=== PATIENT | male | born 1980 | race Caucasian/White ===

== ENCOUNTER 2017-05-02 20:05 | Emergency (ER) | payer MEDICAID ==
[~2017-05-02] VITALS: Ht 180.3 cm; Wt 75.5 kg
[2017-05-02] MEDS ORDERED: ALBU8HFA IH (20:36)
[2017-05-02] MEDS ORDERED: PredniSONE 20 MG TABLET PO ONE (21:15)
[2017-05-02] MEDS ORDERED: PROPARACAINE/FLUORESCEIN SOD 0.5-0.25% 0.5 ML OPHTHALMIC SOLUTION OD ONE (21:15)
[2017-05-02] MEDS ORDERED: DiphenhydrAMINE HCL 25 MG CAPSULE PO ONE (21:15)
[2017-05-02 21:54] VITALS: BP 124/77
== END 2017-05-02 22:32 | disposition home or self-care (01) ==
LOC: EMS 20:07
DX: T78.40XA Allergy, unspecified, initial encounter (principal); J45.909 Unspecified asthma, uncomplicated; F17.210 Nicotine dependence, cigarettes, uncomplicated; Z91.018 Allergy to other foods; X58.XXXA Exposure to other specified factors, initial encounter
CPT/HCPCS: 99284; J7512; Z7610